=== PATIENT | male | born 1955 | race Two or more races ===

== ENCOUNTER 2019-11-13 15:06 | Emergency (ER) | payer OTHER ==
[~2019-11-13] VITALS: Ht 162.6 cm; Wt 66.0 kg
[2019-11-13] MEDS ORDERED: LEVOTHYROXINE (16:08)
[2019-11-13] MEDS ORDERED: TETANUS, DIPHTHERIA, PERTUSSIS VAC/PF 0.5ML (>7YR OLD) IM ONE (19:30)
[2019-11-13] MEDS ORDERED: SILVER SULFADIAZINE 1% CREAM 25GM TOP ONE (19:30)
[2019-11-13 20:07] VITALS: BP 124/74
== END 2019-11-13 20:08 | disposition home or self-care (01) ==
LOC: ER 15:06
DX: T24.211A Burn of second degree of right thigh, initial encounter (principal); T31.0 Burns involving less than 10% of body surface; T79.8XXA Other early complications of trauma, initial encounter; X10.0XXA Contact with hot drinks, initial encounter; Y93.89 Activity, other specified; Y92.89 Other specified places as the place of occurrence of the external cause; Y99.8 Other external cause status; E03.9 Hypothyroidism, unspecified; Z88.5 Allergy status to narcotic agent
CPT/HCPCS: 16020; 90471; 90715; 99284